=== PATIENT | female | born 1935 | race Caucasian/White ===

== ENCOUNTER 2017-09-03 09:52 | Emergency (ER) | payer MEDICARE, BC ==
[~2017-09-03] VITALS: Ht 172.7 cm; Wt 60.0 kg
[~2017-09-03 09:52] MED LIST: ALPR0.5T3 PO; AMLO5TAB2 PO; HYDR-3516 PO; METO50TA PO; MULT-120 PO; NITR100C4 PO; PANT40TA3 PO; SIMV20TA PO; SITA50 PO; TRAM50TA PO; VITA1000 PO; ZOFR4TAB PO
[2017-09-03 09:54] VITALS: BP 199/96; PULSE 74; RESP 15; TEMP 98.4; O2SAT 98
[2017-09-03 10:52] VITALS: BP 172/69; PULSE 74; RESP 15; O2SAT 98
[2017-09-03] MEDS ORDERED: ONDANSETRON HCL 4 MG/2 ML VIAL IV ONE (11:00)
[2017-09-03] MEDS ORDERED: MORPHINE SULFATE 4 MG/ML INJ IV PUSH ONE ×2 (11:00→13:30)
--- NOTE | 2017-09-03 11:11 | PD ---
HPI Chief Complaint: Back/ Neck Pain or Injury Time Seen by Provider: 10:49 Travel History International Travel<30 days: No Contact w/Intl Traveler<30days: No Traveled to known affect area: No History of Present Illness HPI The patient was seen and examined in the presence of the nurse. This patient complains of low back pain. She has chronic low back pain for many years. She gets periodic injections from Dr. Masters. Today her pain is worse. Located in the left buttock area and radiates down to the level of the knee. No sensory loss or muscle weakness or fever or acute injury. She did have a fall 5 days ago and suffered a fractured arm on the left but did not injure her back as far she knows. Symptoms are severe. Duration is many years but worse today. No exacerbating factors. Pain is partially alleviated with her hydrocodone therapy PFSH Past Medical History Anxiety: Yes Cancer: Yes (breast, colon, liver) High Cholesterol: Yes Diabetes: Yes Patient Takes Glucophage: No Gastrointestinal Disorders: Yes (spastic colon) GERD: Yes Genitourinary: Yes (self cath 4x/day) Hypertension: Yes Musculoskeletal: Yes (cbp) Tetanus Vaccination: > 5 Years ?: Not Menopausal: Yes Past Surgical History Appendectomy: Yes Hysterectomy: Yes Social History Alcohol Use: No Tobacco Use: No Substance Use: No Allergies-Medications (Allergen,Severity, Reaction): Coded Allergies: iodine (Unverified Allergy, Severe, 09/03/17) potassium iodide (Unverified Allergy, Severe, 09/03/17) povidone-iodine (Unverified Allergy, Severe, 09/03/17) sodium iodide (Unverified Allergy, Severe, 09/03/17) sodium iodide (Unverified Allergy, Severe, 09/03/17) Sulfa (Sulfonamide Antibiotics) (Unverified Adverse Reaction, Mild, NAUSEA , 09/03/17) diclofenac (Unverified Adverse Reaction, Mild, NAUSEA, 09/03/17) etodolac (Unverified Adverse Reaction, Mild, NAUSEA, 09/03/17) flurbiprofen (Unverified Adverse Reaction, Mild, NAUSEA, 09/03/17) ibuprofen (Unverified Adverse Reaction, Mild, NAUSEA, 09/03/17) indomethacin (Unverified Adverse Reaction, Mild, NAUSEA, 09/03/17) ketoprofen (Unverified Adverse Reaction, Mild, NAUSEA, 09/03/17) ketorolac (Unverified Adverse Reaction, Mild, NAUSEA, 09/03/17) naproxen (Unverified Adverse Reaction, Mild, NAUSEA, 09/03/17) oxaprozin (Unverified Adverse Reaction, Mild, NAUSEA, 09/03/17) oxycodone (Unverified Adverse Reaction, Mild, Nausea, 09/03/17) Reported Meds & Prescriptions Reported Meds & Active Scripts Active Reported Alprazolam 0.5 Mg Tab 0.5 Mg PO Q8H PRN Tramadol (Tramadol HCl) 50 Mg Tab 50 Mg PO Q8H PRN Hydrocodone-Acetaminophen 5-325 mg Tab 1 Tab PO Q6H PRN Vitamin D-1000 (Cholecalciferol) 1,000 Unit Tab 1,000 Units PO DAILY Multivitamin Women (Multiple Vitamins W/ Minerals) 1 Tab Tab 1 Tab PO DAILY Nitrofurantoin Monohydrate Macrocrystals (Nitrofurantoin Monoh/Nitrofur Macro) 100 Mg Cap 100 Mg PO HS PRN Januvia (Sitagliptin Phosphate) 50 Mg Tab 50 Mg PO HS Simvastatin 20 Mg Tab 20 Mg PO HS Amlodipine (Amlodipine Besylate) 5 Mg Tab 5 Mg PO BID Metoprolol Tartrate 50 Mg Tab 50 Mg PO BID Zofran (Ondansetron HCl) 4 Mg Tab 4 Mg PO Q6HR PRN Pantoprazole (Pantoprazole Sodium) 40 Mg Tab 40 Mg PO DAILY Review of Systems General / Constitutional: No: Fever Eyes: No: Visual changes HENT: No: Headaches Cardiovascular: No: Chest Pain or Discomfort Respiratory: No: Shortness of Breath Gastrointestinal: No: Abdominal Pain Genitourinary: No: Dysuria Musculoskeletal: Positive: Pain Skin: No Rash Neurologic: No: Weakness Psychiatric: No: Depression Endocrine: No: Polydipsia Hematologic/Lymphatic: No: Easy Bruising Physical Exam Narrative GENERAL: Well-nourished, well-developed patient with severe low back pain . SKIN: Focused skin assessment reveals no rash and nodules. Skin is Warm and dry. HEAD: Atraumatic. Normocephalic. EYES: Pupils equal and round. No scleral icterus. No injection or drainage. ENT: No nasal bleeding or discharge. Mucous membranes pink and moist. NECK: Trachea midline. No JVD. CARDIOVASCULAR: Regular rate and rhythm. No murmur appreciated. RESPIRATORY: No accessory muscle use. Clear to auscultation. Breath sounds equal bilaterally. GASTROINTESTINAL: Abdomen soft, non-tender, nondistended. Hepatic and splenic margins not palpable. MUSCULOSKELETAL: No obvious deformities. No clubbing. No cyanosis. No edema. Straight leg raise negative. No midline tenderness of the spine NEUROLOGICAL: Awake and alert. No obvious cranial nerve deficits. Motor grossly within normal limits. Normal speech. Sensation intact PSYCHIATRIC: Appropriate mood and affect; insight and judgment normal. Data Data Last Documented VS Vital Signs Date Time Temp Pulse Resp B/P (MAP) Pulse Ox O2 Delivery O2 Flow Rate FiO2 09/03/17 11:16 20 09/03/17 10:52 74 172/69 (103) 98 Room Air 09/03/17 09:54 98.4 Orders Orders Spine, Lumbar - Ltd (Ap & Lat) (09/03/17 ) Iv Access Insert/Monitor (09/03/17 10:59) Pelvis, Ap Only (Routine) (09/03/17 ) Complete Blood Count With Diff (09/03/17 10:59) Basic Metabolic Panel (Bmp) (09/03/17 10:59) Ondansetron Inj (Zofran Inj) (09/03/17 11:00) Morphine Inj (Morphine Inj) (09/03/17 11:00) Labs Laboratory Tests Test 09/03/17 11:10 White Blood Count 10.9 TH/MM3 Red Blood Count 4.78 MIL/MM3 Hemoglobin 14.7 GM/DL Hematocrit 43.5 % Mean Corpuscular Volume 91.0 FL Mean Corpuscular Hemoglobin 30.7 PG Mean Corpuscular Hemoglobin Concent 33.7 % Red Cell Distribution Width 13.7 % Platelet Count 189 TH/MM3 Mean Platelet Volume 9.9 FL Neutrophils (%) (Auto) 60.4 % Lymphocytes (%) (Auto) 26.9 % Monocytes (%) (Auto) 9.0 % Eosinophils (%) (Auto) 3.0 % Basophils (%) (Auto) 0.7 % Neutrophils # (Auto) 6.6 TH/MM3 Lymphocytes # (Auto) 3.0 TH/MM3 Monocytes # (Auto) 1.0 TH/MM3 Eosinophils # (Auto) 0.3 TH/MM3 Basophils # (Auto) 0.1 TH/MM3 CBC Comment DIFF FINAL Differential Comment Blood Urea Nitrogen 30 MG/DL Creatinine 1.11 MG/DL Random Glucose 199 MG/DL Calcium Level 9.4 MG/DL Sodium Level 134 MEQ/L Potassium Level 4.5 MEQ/L Chloride Level 104 MEQ/L Carbon Dioxide Level 22.7 MEQ/L Anion Gap 7 MEQ/L Estimat Glomerular Filtration Rate 47 ML/MIN MDM Medical Decision Making Medical Screen Exam Complete: Yes Emergency Medical Condition: Yes Medical Record Reviewed: Yes Differential Diagnosis Compression fracture, disc herniation, sciatica Narrative Course I have reviewed the patient's electronic medical record. Patient has no imaging of the spine on file here. I did review several injection procedure notes from Dr. Masters IV placed CBC is normal Metabolic profile is normal Patient has accelerated hypertension will be reevaluated after pain medication I gave her IV morphine and IV Zofran I reviewed her lumbar spine x-rays which shows old compression fracture at T11 and T12 and degenerative change. This is nowhere near the location of her pain I reviewed her pelvis x-ray which is negative for fracture Patient is neurologically intact. No emergent indication for MRI. 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 Masters. We placed multiple calls to him but none have been answered or returned. I'm going to discharge her and she will follow-up with him. Diagnosis Primary Impression: Sciatica of left side Additional Impression: Chronic low back pain with left-sided sciatica Qualified Codes: M54.42 - Lumbago with sciatica, left side; G89.29 - Other chronic pain Additional Instructions: The patient was advised to follow up with their physician and return if they worsen. Med/Other Pt SpecificInfo: Other Disposition: DISCHARGE HOME Condition: Stable Chas Cardoza MD Sep 03, 2017 11:11
[2017-09-03 11:23] LABS: AUTOMATED NEUTROPHIL # 6.6 TH/MM3 (1.8-7.7); BASOPHIL # 0.1 TH/MM3 (0-0.2); BASOPHIL % 0.7 % (0.0-2.0); EOSINOPHIL # 0.3 TH/MM3 (0-0.4); HEMATOCRIT 43.5 % (35.0-46.0); HEMO FLAGS DIFF FINAL; LYMPH % 26.9 % (9.0-44.0); MEAN CORPUSCULAR HEMOGLOBIN 30.7 PG (27.0-34.0); MEAN CORPUSCULAR HGB CONC 33.7 % (32.0-36.0); NEUT % 60.4 % (16.0-70.0); PLATELET COUNT 189 TH/MM3 (150-450); RED BLOOD COUNT 4.78 MIL/MM3 (4.00-5.30); RED CELL DISTRIBUTION WIDTH 13.7 % (11.6-17.2); WHITE BLOOD COUNT 10.9 TH/MM3 (4.0-11.0)
--- NOTE | 2017-09-03 11:34 | RADRPT ---
EXAM DATE/TIME: 09/03/2017 11:23 [facility] COMPARISON: No previous studies available for comparison. INDICATIONS : Pelvic pain after fall. MEDICAL HISTORY : Carcinoma, colon. Carcinoma, skin. SURGICAL HISTORY : Hysterectomy. ENCOUNTER: Initial ACUITY: 4 - 6 days PAIN SCORE: 10/10 LOCATION: pelvis FINDINGS: A single frontal view of the pelvis demonstrates no evidence of fracture. The bony pelvic ring is in tact. Bony mineralization is normal. The soft tissues are intact. There are focal degenerative blair ges at the pubic symphysis. There is good alignment of the SI joints and pubic symphysis. CONCLUSION: 1. No acute fracture or joint dislocation. 2. Degenerative type changes involving the pubic symphysis. Ollie Momin MD on September 03, 2017 at 11:32 Board Certified Radiologist. This report was verified electronically.
--- NOTE | 2017-09-03 11:36 | RADRPT ---
EXAM DATE/TIME: 09/03/2017 11:24 [facility] COMPARISON: No previous studies available for comparison. INDICATIONS : Lumbar pain after fall. MEDICAL HISTORY : Carcinoma, colon. Carcinoma, skin. SURGICAL HISTORY : Hysterectomy. ENCOUNTER: Initial ACUITY: 4 - 6 days PAIN SCORE: 10/10 LOCATION: lumbar FINDINGS: Two view examination was performed. There are five non-rib bearing vertebral bodies. There is mild r etrolisthesis of L1 over L2. No acute compression fracture there is a seen involving the lumbar spine . There is chronic wedge compression of T11 and T12 with bony degenerative changes. There are bony de generative changes involving the lumbar spine. Atherosclerotic changes are seen in the aorta. There i s good alignment the SI joints.. CONCLUSION: 1. Mild primary degenerative changes lumbar spine. 2. Mild retrolisthesis of L1 over L2. 3. Old wedge compression of T11 and T12 with degenerative changes. Ollie Momin MD on September 03, 2017 at 11:33 Board Certified Radiologist. This report was verified electronically.
[2017-09-03 11:45] LABS: BICARBONATE 22.7 MEQ/L (21.0-32.0); POTASSIUM 4.5 MEQ/L (3.5-5.1)
[2017-09-03 14:15] VITALS: BP 172/62; PULSE 70; RESP 15; O2SAT 98
[2017-09-13] MEDS ORDERED: ONETAB22 PO (07:32)
[2017-09-13] MEDS ORDERED: CIPR-9 PO (07:34)
[2017-09-13] MEDS ORDERED: FENT12DI T-DERMAL (07:34)
== END 2017-09-03 14:16 | disposition home or self-care (01) ==
LOC: NEPE 09:52
DX: M54.42 Lumbago with sciatica, left side (principal); G89.29 Other chronic pain
CPT/HCPCS: 72100; 72170; 80048; 85025; 96374; 96375; 96376; 99284; J2270; J2405